=== PATIENT | female | born 1970 ===

== ENCOUNTER 2020-11-22 12:15 | Inpatient (IN) | payer OTHER ==
[~2020-11-22] VITALS: Ht 157.5 cm; Wt 59.0 kg
[2020-12-01] MEDS ORDERED: IBUPROFEN800 MG PO (06:45)
[2020-12-01] MEDS ORDERED: POLY119PG PO (06:45)
[2020-12-01] MEDS ORDERED: SIMETHICONE125 M1 PO (06:45)
[2020-12-01] MEDS ORDERED: PROTONIX40 MG PO (06:45)
[2020-12-01] MEDS ORDERED: NEURONTIN600 MG PO (06:45)
== END 2020-12-01 08:57 | disposition home or self-care (01) | DRG 743 ==
LOC: O/R 11-29 05:30 → OB/GYN 11-29 05:30 → O/R 11-29 09:45 → OB/GYN 11-29 11:02 → O/R 11-29 12:15 → OB/GYN 12-01 08:57
PROVIDERS: ADMIT Obstetrics & Gynecology; ATTEND Obstetrics & Gynecology
PROC: 0UT20ZZ Resection of Bilateral Ovaries, Open Approach (ICD-10-PCS; 2020-11-29)
PROC: 0UT70ZZ Resection of Bilateral Fallopian Tubes, Open Approach (ICD-10-PCS; 2020-11-29)
PROC: 0UT90ZZ Resection of Uterus, Open Approach (ICD-10-PCS; principal; 2020-11-29 09:45)
DX: N72 Inflammatory disease of cervix uteri (principal); D25.1 Intramural leiomyoma of uterus; D25.2 Subserosal leiomyoma of uterus; D27.0 Benign neoplasm of right ovary; N83.01 Follicular cyst of right ovary